=== PATIENT | male | born 1950 | race Hispanic/Latino ===

== ENCOUNTER 2024-03-08 17:48 | Inpatient (IN) | payer MEDICARE ==
[~2024-03-08] VITALS: Ht 182.9 cm; Wt 96.2 kg
[2024-03-08 21:25] VITALS: BP 162/69; PULSE 66; RESP 22; TEMP 98.4; O2SAT 100
[2024-03-08 22:41] VITALS: BP 162/69; PULSE 66; RESP 22; TEMP 98.4; O2SAT 100
[2024-03-08 22:53] VITALS: BP 162/69; PULSE 66; RESP 22; TEMP 98.4; O2SAT 100
[2024-03-09] VITALS (9 sets, daily range): BP systolic 154–171; BP diastolic 66–77; PULSE 66–80; RESP 16–21; TEMP 97.5–99.1; O2SAT 96–100
[2024-03-09] MEDS ORDERED: NIFEDIPINE ER60 MG PO (00:05)
[2024-03-09] MEDS ORDERED: OMEPRAZOLE40 MG (00:05)
[2024-03-09] MEDS ORDERED: ESIDRIX25 MG PO (00:05)
[2024-03-09] MEDS ORDERED: GLIPIZIDE10 MG PO (00:05)
[2024-03-09] MEDS ORDERED: LOSARTAN POTAS100 MG PO (00:05)
[2024-03-09] MEDS ORDERED: SIMVASTATIN80 MG PO (00:05)
[2024-03-09] MEDS ORDERED: JANUMET 50-1,01 EACH PO (00:05)
[2024-03-09] MEDS ORDERED: DEXTROSE 50% SYRINGE 50 ML IV PRN (00:45)
[2024-03-09] MEDS: ACETAMINOPHEN 325 MG TAB PO PRN (00:48)
[2024-03-09] MEDS: NIFEDIPINE CR 30 MG TAB PO STA (00:49)
[2024-03-09] MEDS: OMEPRAZOLE 20 MG CAP PO STA (00:49)
[2024-03-09 06:10] LABS: BASOPHILS % 0.3 % (0.0-1.0); EOSINOPHILS % 0.1 % (0.0-6.0); HEMATOCRIT 34.2 % (38.2-49.6); LYMPHOCYTES # (AUTO) 0.7 (1.0-3.2); LYMPHOCYTES % 10.1 % (18.0-39.1); MEAN CORPUSCULAR HEMOGLOBIN 28.7 pg (28-32); MEAN CORPUSCULAR HGB CONC 32.2 g/dL (31-35); MEAN CORPUSCULAR VOLUME 89.3 fL (81-99); MONOCYTES # (AUTO) 0.4 (0.2-0.8); MONOCYTES % 5.8 % (4.4-11.3); NEUTROPHILS # (AUTO) 5.9 (2.1-6.9); NEUTROPHILS % 83.6 % (38.7-80.0); PLATELET COUNT 174 x10e3/uL (140-360); RED BLOOD COUNT 3.83 x10e6/uL (4.3-5.7); RED CELL DISTRIBUTION WIDTH 14.3 % (11.7-14.4); WHITE BLOOD COUNT 7.06 x10e3/uL (4.8-10.8)
[2024-03-09 06:53] LABS: ANION GAP 9.3 mmol/L (8-16); CALCIUM 11.2 mg/dL (8.4-10.2); CREATININE, SERUM 1.12 mg/dL (0.72-1.25); POTASSIUM 4.3 mmol/L (3.5-5.1)
[2024-03-09] MEDS: NIFEDIPINE CR 30 MG TAB PO SCH (09:38)
[2024-03-09] MEDS: INSULIN LISPRO 100 UNIT/1 ML 3ML VIAL SQ SCH (09:44)
[2024-03-09 12:40] LABS: BAND NEUTROPHILS % (MANUAL) 13 %; LYMPHOCYTES % (MANUAL) 8 % (19-48); MONOCYTES % (MANUAL) 7 % (3.4-9.0); NEUTROPHILS % (MANUAL) 72 % (40-74)
[2024-03-09 12:42] LABS: PLATELET ESTIMATE ADEQUATE; PLATELET MORPHOLOGY COMMENT FEW LARGE; RBC MORPHOLOGY COMMENT NORMAL
[2024-03-09 15:35] LABS: BILIRUBIN,URINE NEGATIVE (NEGATIVE); CLARITY,URINE CLEAR (CLEAR); COLOR,URINE YELLOW (YELLOW); NITRITE,URINE NEGATIVE (NEGATIVE); PH,URINE 6 (5 - 7); PROTEIN,URINE DIPSTICK 2+ (NEGATIVE); URINE UROBILINOGEN 0.2 mg/dL (0.2 - 1)
[2024-03-09 15:36] LABS: GLUCOSE, URINE 500 (NEGATIVE); KETONES,URINE 2+ (NEGATIVE); LEUKOCYTE ESTERASE ,URINE SMALL (NEGATIVE)
[2024-03-09 15:48] LABS: WBC,URINE (MAN) >50 /HPF (0-5)
[2024-03-09 15:49] LABS: BACTERIA,URINE FEW /HPF
[2024-03-09] MEDS: SIMVASTATIN 40 MG TAB PO SCH (20:32)
[2024-03-10] VITALS (7 sets, daily range): BP systolic 150–175; BP diastolic 67–81; PULSE 65–82; RESP 17–20; TEMP 97.9–99.1; O2SAT 97–100
[2024-03-10 05:31] LABS: BASOPHILS % 0.4 % (0.0-1.0); EOSINOPHILS # (AUTO) 0.1 (0.0-0.4); EOSINOPHILS % 1.6 % (0.0-6.0); HEMATOCRIT 37.1 % (38.2-49.6); HEMOGLOBIN 12.2 g/dL (14.0-18.0); LYMPHOCYTES # (AUTO) 1.2 (1.0-3.2); MEAN CORPUSCULAR HEMOGLOBIN 28.3 pg (28-32); MEAN CORPUSCULAR HGB CONC 32.9 g/dL (31-35); MEAN CORPUSCULAR VOLUME 86.1 fL (81-99); MONOCYTES # (AUTO) 0.5 (0.2-0.8); MONOCYTES % 7.6 % (4.4-11.3); NEUTROPHILS # (AUTO) 4.9 (2.1-6.9); NEUTROPHILS % 72.4 % (38.7-80.0); PLATELET COUNT 190 x10e3/uL (140-360); RED BLOOD COUNT 4.31 x10e6/uL (4.3-5.7); RED CELL DISTRIBUTION WIDTH 13.8 % (11.7-14.4); WHITE BLOOD COUNT 6.82 x10e3/uL (4.8-10.8)
[2024-03-10 05:55] LABS: ANION GAP 18.5 mmol/L (8-16); CALCIUM 9.8 mg/dL (8.4-10.2); CREATININE, SERUM 0.93 mg/dL (0.72-1.25); POTASSIUM 3.5 mmol/L (3.5-5.1)
[2024-03-10] MEDS: PANTOPRAZOLE SOD 40 MG TABEC PO SCH (09:11)
[2024-03-10] MEDS: NIFEDIPINE CR 30 MG TAB PO SCH (17:07)
[2024-03-11] VITALS (8 sets, daily range): BP systolic 142–165; BP diastolic 65–83; PULSE 63–78; RESP 16–18; TEMP 98.2–99.7; O2SAT 95–100
[2024-03-11] MEDS: SODIUM CHLORIDE 0.9% 250ML 250 ML ONE (08:25)
[2024-03-11] MEDS: LOSARTAN POTASSIUM 100 MG TAB PO SCH (09:15)
[2024-03-12] VITALS (7 sets, daily range): BP systolic 135–168; BP diastolic 67–78; PULSE 55–80; RESP 17–18; TEMP 97.4–98.9; O2SAT 93–100
[2024-03-12 05:23] LABS: BASOPHILS % 0.4 % (0.0-1.0); EOSINOPHILS # (AUTO) 0.1 (0.0-0.4); EOSINOPHILS % 1.1 % (0.0-6.0); HEMATOCRIT 35.4 % (38.2-49.6); HEMOGLOBIN 11.8 g/dL (14.0-18.0); LYMPHOCYTES # (AUTO) 1.6 (1.0-3.2); LYMPHOCYTES % 30.8 % (18.0-39.1); MEAN CORPUSCULAR HEMOGLOBIN 28.2 pg (28-32); MEAN CORPUSCULAR HGB CONC 33.3 g/dL (31-35); MEAN CORPUSCULAR VOLUME 84.5 fL (81-99); MONOCYTES # (AUTO) 0.7 (0.2-0.8); MONOCYTES % 13.6 % (4.4-11.3); NEUTROPHILS # (AUTO) 2.8 (2.1-6.9); NEUTROPHILS % 53.5 % (38.7-80.0); PLATELET COUNT 197 x10e3/uL (140-360); RED BLOOD COUNT 4.19 x10e6/uL (4.3-5.7); RED CELL DISTRIBUTION WIDTH 13.3 % (11.7-14.4); WHITE BLOOD COUNT 5.29 x10e3/uL (4.8-10.8)
[2024-03-12 05:42] LABS: ANION GAP 15.4 mmol/L (8-16); CALCIUM 9.2 mg/dL (8.4-10.2); CREATININE, SERUM 1.08 mg/dL (0.72-1.25); POTASSIUM 3.4 mmol/L (3.5-5.1)
[2024-03-12] MEDS: CIPROFLOXACIN 500 MG TAB PO SCH (18:04)
[2024-03-12] MEDS: INSULIN GLARGINE 100 UNITS/ML VIAL SQ SCH (21:25)
[2024-03-13] VITALS: BP 141/81; PULSE 75; RESP 16; TEMP 100.2; O2SAT 100
[2024-03-13 05:43] VITALS: BP 154/75; PULSE 70; RESP 18; TEMP 98.4; O2SAT 100
[2024-03-13 08:00] VITALS: BP 150/83; PULSE 96; RESP 18; TEMP 97.9; O2SAT 100
[2024-03-13 08:12] VITALS: BP 150/73; PULSE 76; RESP 18; TEMP 97.9; O2SAT 100
[2024-03-13 11:54] VITALS: BP 139/73; PULSE 68; RESP 17; TEMP 98.3; O2SAT 100
[2024-03-13 16:28] VITALS: BP 143/75; PULSE 69; RESP 18; TEMP 98; O2SAT 100
== END 2024-03-13 17:03 | disposition home or self-care (01) | DRG 871 ==
LOC: MED/SURG3 21:07
PROVIDERS: ADMIT Internal Medicine; ATTEND Internal Medicine
PROC: 3E0333Z Introduction of Anti-inflammatory into Peripheral Vein, Percutaneous Approach (ICD-10-PCS; principal; 2024-03-08)
DX: A41.59 Other Gram-negative sepsis (principal); G93.41 Metabolic encephalopathy; N17.9 Acute kidney failure, unspecified; E87.20 Acidosis, unspecified; N12 Tubulo-interstitial nephritis, not specified as acute or chronic; F03.90 Unspecified dementia, unspecified severity, without behavioral disturbance, psychotic disturbance, mood disturbance, and anxiety; E11.65 Type 2 diabetes mellitus with hyperglycemia; N30.90 Cystitis, unspecified without hematuria; E86.0 Dehydration; I10 Essential (primary) hypertension; E78.49 Other hyperlipidemia; K21.9 Gastro-esophageal reflux disease without esophagitis; Z79.84 Long term (current) use of oral hypoglycemic drugs; Z82.49 Family history of ischemic heart disease and other diseases of the circulatory system; Z83.3 Family history of diabetes mellitus; Z81.8 Family history of other mental and behavioral disorders
CPT/HCPCS: 36415; 70551; 80048; 81001; 82607; 82948; 83605; 84443; 85025; 87040; 87086; 95819; 96372; 99252; J0692; J0696; J3411; J7050